=== PATIENT | female | born 1975 | race Caucasian/White ===

== ENCOUNTER 2017-03-03 13:34 | Day surgery (SDC) | payer BC ==
[~2017-03-03 13:34] MED LIST: Dexamethasone 4 MG/ML 5 ML MDV ONE; Ibuprofen 600 MG Tab ONE; Ketorolac 30 MG/ML SDV ONE; Lactated Ringers 1,000 ML IV SCH; Midazolam 1 MG/ML 2 ML SDV ONE; Ondansetron 4 MG/2 ML SDV ONE; Propofol 200 MG/20 ML SDV ONE; Sodium Chloride 0.9% 10 ML Syringe FLUSH PRN; Sodium Chloride 0.9% 2.5 ML Syringe FLUSH PRN; ceFAZolin 1 GM in Premix Bag 1 BAG IV ONE; fentaNYL 100 MCG/2 ML SDV ONE
--- NOTE | 2017-03-03 18:20 | OR ---
SURGEON: Radha Denise MD DATE OF PROCEDURE: 03/03/2017 PREOPERATIVE DIAGNOSIS: Menorrhagia. POSTOPERATIVE DIAGNOSIS: Menorrhagia. PROCEDURE PERFORMED: 1. Diagnostic hysteroscopy with dilatation and curettage. 2. Endometrial ablation. ANESTHESIA: General endotracheal. ESTIMATED BLOOD LOSS: Minimal. FINDINGS: Mobile, retroverted uterus, 8-week size. No cervical lesions or palpable adnexal masses.Hysteroscopic findings revealed a fluffy endometrial lining with no polyps or fibroids seen. Both ostia were visualized. COMPLICATIONS: None. DISPOSITION: Stable to recovery room. BRIEF HISTORY: The patient is a 41-year-old lady with a history of heavy regular menstrual cycles which had led to iron-deficiency anemia. She is currently taking iron supplements and her hemoglobin has improved on it. Evaluation in the office were negative including a pelvic sonogram and a benign endometrial biopsy. After extensive discussion with the patient of various management for menorrhagia, she opted to have an endometrial ablation. The surgical risks were discussed including but not limited to bleeding, infection, uterine perforation, and injury to surrounding organs. She understands that ablation does not provide contraception and there is an increased risk of masking future endometrial premalignant or malignant pathologies. After understanding these risks, the patient opted to proceed with the procedure and appropriate consent was obtained. DESCRIPTION OF PROCEDURE: The patient was taken to the operating room, where general anesthesia induction was performed without difficulty. After adequate level of anesthesia, she was placed in dorsal lithotomy position, prepped and draped in the usual sterile fashion for a vaginal procedure. The bladder was emptied. Examination under anesthesia revealed the aforementioned findings. A weighted speculum was placed into the vagina and the anterior lip of the cervix was grasped with a single- tooth tenaculum. The uterine cavity was sounded to a depth of 10 cm. The os was serially dilated up to a #8 Hegar dilator and a 6.2 mm diagnostic scope was inserted into the uterine cavity under direct visualization using normal saline as a distention media. Upon entering the uterine cavity. The patient was noted to have a fluffy endometrial lining especially along the posterior wall. The hysteroscope was then removed and a gentle curettage was performed with copious amount of tissue obtained. The hysteroscope was reinserted and an adequate curettage was noted to had been performed. The Bernie machine was then set up and primed according to the life advisor's guidelines. Subtracting the cervical length from the total uterine length, the maneuver handpiece was set at 6.[address] in [address]. The handpiece was then gently inserted into the endometrial cavity. Once the tip reached the uterine fundus, it was slightly withdrawn, and handpiece was deployed. The opening array indicator was noted to be in the green zone. The cervical sealing balloon was inflated and uterine integrity test was successful. The endometrial ablation cycle was then commenced, but with 65 minutes remaining on the cycle, Error 009 was displayed on the machine monitor. This error corresponded to an Argon flow error according to the troubleshooting chart and the recommendation was to change the handpiece. The procedure was then terminated. The handpiece was removed and the hysteroscopy was reinserted, the majano were noted to be ablated and no injuries were visualized. A new handpiece was brought in, it was primed according to the life advisor's guideline inserted and the 2nd ablation cycle was recommenced. Once again the Error 009 was displayed on the machine but this time around we only had 12 seconds left on the cycle. The handpiece was then removed and the procedure deemed completed since the endometrium had been adequately ablated for approximately a total 160 seconds with both cycles. The hysteroscope was inserted into the uterine cavity and the majano were noted to had been adequately ablated with no injuries visualized. All instruments were then removed from the patient's vagina. The site of the tenaculum clamp was on the cervix was noted to be hemostatic. Once the vagina was cleaned out, all sponge instrument counts were correct at the end of the procedure. The input and output of normal saline were calculated by the [employer] fluid management system and the deficit documented on the nurse's chart. Please refer to it for accurate amount. The patient was taken to the recovery room in a stable condition. SOLOMON / FERMÍN /[id number] MURRAY
== END 2017-03-10 11:25 | disposition home or self-care (01) ==
LOC: MW.SDS 13:34
PROVIDERS: ATTEND Obstetrics & Gynecology
DX: N92.0 Excessive and frequent menstruation with regular cycle (principal); D50.9 Iron deficiency anemia, unspecified; G43.909 Migraine, unspecified, not intractable, without status migrainosus; F32.9 Major depressive disorder, single episode, unspecified; Z79.899 Other long term (current) drug therapy; Z98.890 Other specified postprocedural states; Z82.3 Family history of stroke; Z82.49 Family history of ischemic heart disease and other diseases of the circulatory system
CPT/HCPCS: 36415; 58563; 84703; 85027; 88305; J0690; J1100; J1885; J2250; J2405; J3010; 00952; J2704